=== PATIENT | male | born 1960 | race Caucasian/White ===

== ENCOUNTER 2022-12-20 10:18 | Emergency (ER) | payer BC ==
[~2022-12-20] VITALS: Wt 99.8 kg
[~2022-12-20 10:18] MED LIST: AVODART0.5 MG PO; BENICAR40 MG PO; LIPITOR10 MG PO; MELOXICAM15 MG PO; TRIAMTERENE-HC1 EACH PO
== END 2022-12-20 11:45 | disposition home or self-care (01) ==
LOC: ED 10:18
DX: S61.211A Laceration without foreign body of left index finger without damage to nail, initial encounter (principal); I10 Essential (primary) hypertension; W26.8XXA Contact with other sharp object(s), not elsewhere classified, initial encounter; Y93.89 Activity, other specified; Y92.89 Other specified places as the place of occurrence of the external cause; Y99.8 Other external cause status